=== PATIENT | female | born 1960 | race Caucasian/White ===

== ENCOUNTER → 2020-08-29 | Outpatient (CLI) | payer OTHER ==
[~2020-08-29] MED LIST: ACCUPRIL20 MG PO; AMLODIPINE BESY10 MG PO; ASPIR-LOW81 MG PO; HYDROCHLOROTH12.5 MG PO; IBU600 MG PO; LIPITOR TAB 1010 MG PO; PERCOCET 5-3251 EACH PO; VITAMIN D21250 MCG PO
== END ==
LOC: MAMO 08-23 14:00
DX: Z53.9 Procedure and treatment not carried out, unspecified reason (principal)

== ENCOUNTER → 2020-09-13 | Outpatient (CLI) | payer OTHER | LOC: HEART 5 14:15 | DX: R00.2 Palpitations (principal); I08.8 Other rheumatic multiple valve diseases | CPT/HCPCS: 93306 ==

== ENCOUNTER → 2021-10-23 | Outpatient (CLI) | payer OTHER | LOC: MAMO 05-03 09:00 | DX: Z12.31 Encounter for screening mammogram for malignant neoplasm of breast (principal) | CPT/HCPCS: 77063; 77067 ==

== ENCOUNTER → 2021-11-15 | Outpatient (CLI) | payer OTHER | LOC: LAB 09:32 | DX: Z20.822 Contact with and (suspected) exposure to COVID-19 (principal) | CPT/HCPCS: U0003 ==